=== PATIENT | female | born 1995 | race American Indian/Alaskan Native ===

== ENCOUNTER 2018-02-13 22:44 | Emergency (ER) | payer OTHER ==
[~2018-02-13] VITALS: Ht 154.9 cm; Wt 74.8 kg
[~2018-02-13 22:44] MED LIST: BENADRYL25 MG PO; ONE DAILY MAXI1 EAC1 PO; PROMETHAZINE HC25 M1 PO; VITAMIN C1000 M1 PO
== END 2018-02-13 23:31 | disposition home or self-care (01) ==
LOC: ED 22:44
PROC: 0HQFXZZ Repair Right Hand Skin, External Approach (ICD-10-PCS; principal; 2018-02-13)
DX: S61.011A Laceration without foreign body of right thumb without damage to nail, initial encounter (principal); F17.200 Nicotine dependence, unspecified, uncomplicated; W26.0XXA Contact with knife, initial encounter
CPT/HCPCS: 12001; 99282

== ENCOUNTER 2018-12-15 03:05 | Emergency (ER) | payer OTHER ==
[~2018-12-15] VITALS: Ht 154.9 cm; Wt 74.8 kg
--- NOTE | 2018-12-15 15:34 | EKG ---
[facility] [address] [facility] [place] [address] Signed Sinus rhythm with marked sinus arrhythmia Otherwise normal ECG No previous ECGs available Confirmed by LESTER DAMICO MD ([id number]) on 12/15/2018 3:34:42 PM Electronically Signed By: LESTER DAMICO MD 12/15/18 1534 PATIENT NAME: GAYLE FOOTE ARLENE Electrocardiogram DATE OF : [birth year] PHYSICIAN: LESTER DAMICO MD REPORT #: [id number] REPORT IS CONFIDENTIAL AND NOT TO BE RELEASED WITHOUT AUTHORIZATION
== END 2018-12-15 04:48 | disposition home or self-care (01) ==
LOC: ED 03:05
DX: F41.9 Anxiety disorder, unspecified (principal); F17.200 Nicotine dependence, unspecified, uncomplicated
CPT/HCPCS: 71046; 85379; 93005; 93010; 99285-25

== ENCOUNTER 2019-05-22 01:23 | Emergency (ER) | payer OTHER ==
[~2019-05-22] VITALS: Ht 154.9 cm; Wt 72.6 kg
[~2019-05-22 01:23] MED LIST changes: +FLAGYL500 MG PO
[2019-05-22] MEDS ORDERED: ZOLOFT25 MG PO (01:37)
[2019-05-22] MEDS ORDERED: KEFLEX500 MG PO (01:43)
== END 2019-05-22 01:53 | disposition home or self-care (01) ==
LOC: ED 01:23
DX: L03.114 Cellulitis of left upper limb (principal); F32.9 Major depressive disorder, single episode, unspecified; F41.9 Anxiety disorder, unspecified; F17.200 Nicotine dependence, unspecified, uncomplicated; Z79.899 Other long term (current) drug therapy
CPT/HCPCS: 99283

== ENCOUNTER 2020-10-01 07:46 | Inpatient (IN) | payer OTHER ==
[~2020-10-01] VITALS: Ht 152.4 cm; Wt 86.6 kg
[~2020-10-01 07:46] MED LIST changes: +KEFLEX500 MG PO; +ZOLOFT25 MG PO
--- NOTE | 2020-10-02 08:42 | NUR ---
10/02/20 0842 [place] 0863-PATIENT ARRIVED BACK TO ROOM 104 FOR RECOVERY. PATIENT AWAKE REPORTS "JUST SLEEPY" ON RA RR EVEN. DENIES PAIN OR NAUSEA. IVF INFUSING TO RIGHT HAND CDI WITH 20 PITOCIN LR. FUNDUS FIRM 1 BELOW UMBILICUS LIGHT RUBRA DRAINAGE. CHAVEZ CATHETER INFUSING. 0840-PATIENT FEEDING BABY TO BREAST HORACIO RN ASSISTING. DENIES PAIN OR NAUSEA. REPORTS "NUMBNESS TO SOME OF RIGHT ARM" ABLE TO MOVE EXTREMITY.
--- NOTE | 2020-10-02 13:08 | PR ---
[facility] [address] [place], [place] [address] Signed PP Progress Notes Datetime Report Generated by CPN: 10/02/2020 13:08 SUBJECTIVE: [id number] Pain: Within Normal Limits Nausea/Vomiting: Denies Flatus: No Bowel Movement: No Vital Signs: [id number] Vital Signs: Reviewed Notable Details: Mild tachycardia Cardiovascular: Normal Respiratory: Normal Abdomen/Uterus: Normal Lochia: Normal Vulva/Perineum: Normal CVA Tenderness: Normal Exam Comments: Fundus firm U=0. Scant blood w/ bimanual exam. IMPRESSION/PLAN/PROCEDURES: [id number] Other Impression: bleeding Progress Notes: Called to pt room for bleeding. EBL at time of 500cc. Two moderate gushes of blood w/ fundal massage per RN. Total EBL approaching 1000cc. Mild tachycardia noted. Good urine output in reid bag noted (clear yellow). Pt denies lightheadedness or SOB. On exam, fundus firm, no intrauterine clots or debris, and additional 27cc (weighed pads) noted. Pt has received 1000mcg cytotec, pitocin per protocol, and IV fluid bolus x 1L LR. Reviewed bleeding, admission Hgb (10.1), and options. TXA 1 g IV ordered. Reviewed plan of care w/ RN and pt. All questions answered. Signing Physician: Ifeoma Kim DO Copies: ~ *Electronically Signed* 10/02/20 8123 IFEOMA KIM DO PATIENT NAME: GAYLE FOOTE PROGRESS NOTE DATE OF : [birth year] PHYSICIAN: IFEOMA KIM DO RPT #: [id number] REPORT IS CONFIDENTIAL AND NOT TO BE RELEASED WITHOUT AUTHORIZATION
--- NOTE | 2020-10-03 08:46 | PR ---
[facility] [address] [facility] [place], [place] [address] Signed PP Progress Notes Datetime Report Generated by CPN: 10/03/2020 07:43 SUBJECTIVE: [id number] Pain: Within Normal Limits Nausea/Vomiting: Denies Flatus: Yes Bowel Movement: No Vital Signs: [id number] Vital Signs: Reviewed Notable Details: Mild tachycardia Cardiovascular: Normal Respiratory: Normal Abdomen/Uterus: Normal Lochia: Normal Vulva/Perineum: Normal Breasts: Not Done CVA Tenderness: Normal Extremities: Normal Incision: Normal Progress: Normal Exam Comments: Fundus firm U-2 nontender IMPRESSION/PLAN/PROCEDURES: [id number] Impression: Normal Progression Other Impression: bleeding Plan: Continue Present Management Progress Notes: Pt seen and examined. Doing well. Ambulating and tolerating full diet. Pain and lochia minimal. well. Hendrix cath in place. No significant bleeding overnight. No lightheadedness/dizziness. Hgb this AM 7.8. Reviewed anticipated course w/ discharge anticipated tomorrow. All quesitons answered. Signing Physician: Ifeoma Kim DO Copies: ~ *Electronically Signed* 10/03/20 0743 IFEOMA KIM DO PATIENT NAME: GAYLE FOOTE PROGRESS NOTE DATE OF : [birth year] PHYSICIAN: IFEOMA KIM DO RPT #: [id number] REPORT IS CONFIDENTIAL AND NOT TO BE RELEASED WITHOUT AUTHORIZATION
--- NOTE | 2020-10-04 08:19 | PR ---
[facility] [address] [facility] [place], [place] [address] Signed PP Progress Notes Datetime Report Generated by CPN: 10/04/2020 08:19 SUBJECTIVE: [id number] Pain: Within Normal Limits Nausea/Vomiting: Denies Flatus: Yes Bowel Movement: Yes Vital Signs: [id number] Vital Signs: Reviewed; Within Normal Limits Notable Details: Mild tachycardia Cardiovascular: Normal Respiratory: Not Done Abdomen/Uterus: Abnormal Lochia: Normal Vulva/Perineum: Not Done Breasts: Not Done CVA Tenderness: Not Done Extremities: Abnormal Incision: Normal Progress: Normal Exam Comments: Abdomen with active BS. Fundus firm, NT @ U-2. IMPRESSION/PLAN/PROCEDURES: [id number] Impression: Normal Progression Other Impression: bleeding Plan: Remove Eldena; Discharge Procedures: None Progress Notes: Doing well. She is ready for D/C. Signing Physician: Caren Esparza MD Copies: ~ *Electronically Signed* 10/04/20818 CAREN ESPARZA MD PATIENT NAME: NICOLA FOOTETeetee JACOBS PROGRESS NOTE DATE OF : [birth year] PHYSICIAN: CAREN ESPARZA MD RPT #: [id number] REPORT IS CONFIDENTIAL AND NOT TO BE RELEASED WITHOUT AUTHORIZATION
== END 2020-10-04 09:30 | disposition home or self-care (01) | DRG 787 ==
LOC: FBC 10-02 05:06
PROVIDERS: ADMIT Obstetrics & Gynecology; ATTEND Obstetrics & Gynecology
PROC: 10D00Z1 Extraction of Products of Conception, Low, Open Approach (ICD-10-PCS; principal; 2020-10-02 06:45)
DX: O34.211 Maternal care for low transverse scar from previous cesarean delivery (principal); O72.1 Other immediate postpartum hemorrhage; D62 Acute posthemorrhagic anemia; N85.8 Other specified noninflammatory disorders of uterus; Z37.0 Single live birth; O90.81 Anemia of the puerperium; O99.02 Anemia complicating childbirth; D64.9 Anemia, unspecified; O99.334 Smoking (tobacco) complicating childbirth; F17.210 Nicotine dependence, cigarettes, uncomplicated; Z3A.39 39 weeks gestation of pregnancy; O69.81X0 Labor and delivery complicated by cord around neck, without compression, not applicable or unspecified; O99.344 Other mental disorders complicating childbirth; F41.9 Anxiety disorder, unspecified; F32.9 Major depressive disorder, single episode, unspecified; O99.284 Endocrine, nutritional and metabolic diseases complicating childbirth; E55.9 Vitamin D deficiency, unspecified; Z86.19 Personal history of other infectious and parasitic diseases
CPT/HCPCS: 36415; 85025; 85027; 85384; 85610; 85730; A9270; J0690; J1100; J1200; J1885; J2001; J2274; J2300; J2370; J2405; J2590; J3010

== ENCOUNTER 2024-08-19 05:05 | Emergency (ER) | payer OTHER ==
[~2024-08-19] VITALS: Ht 152.4 cm; Wt 86.1 kg
[2024-08-19] MEDS ORDERED: LIDOCAINE & ANTACID 35 ML BTL PO ONE (05:45)
[2024-08-19 06:15] LABS: COMMENT SEE BELOWN; CORONAVIRUS COVID-19 AG NEGATIVE (NEGATIVE); INFLUENZA A AG NEGATIVE (NEGATIVE); INFLUENZA B AG NEGATIVE (NEGATIVE)
[2024-08-19] MEDS ORDERED: PENICILLIN G BENZATHINE 1.2 MUNITS/2 ML SYR IM ONE (06:30)
[2024-08-19 07:02] VITALS: BP 121/82
== END 2024-08-19 07:02 | disposition home or self-care (01) ==
LOC: ED 05:05
PROVIDERS: Internal Medicine
DX: J02.0 Streptococcal pharyngitis (principal); F17.200 Nicotine dependence, unspecified, uncomplicated
CPT/HCPCS: 36415; 87651; 96372; 99283; J0561